=== PATIENT | male | born 1975 | race Caucasian/White ===

== ENCOUNTER → 2020-03-24 | Outpatient (CLI) | payer BC ==
[~2020-03-24] MED LIST: ASPIRIN 81M81 MG/TA2 PO; FLAGYL500 MG PO; LEVAQUIN 5500 MG/TA1 PO; NORCO 325 MG-51 TAB PO; NORVASC 5MG5 MG/TAB PO
== END ==
LOC: ZCOL.LAB 14:24
DX: Z20.828 Contact with and (suspected) exposure to other viral communicable diseases (principal)